=== PATIENT | female | born 1955 | race Caucasian/White ===

== ENCOUNTER → 2017-08-25 | Outpatient (CLI) | payer OTHER ==
[~2017-08-25] VITALS: Ht 167.6 cm; Wt 63.5 kg
[~2017-08-25] MED LIST: FISH OIL 1,001000 M2 PO; FOSAMAX 70 MG T70 MG PO; MULTI VITAMIN1 EACH PO
--- NOTE | ~2017-08-25 | P ---
[facility] [place] [address] PROCEDURE REPORT Name: RENUKA NEGRON Room #: REG [facility]#: [id number] Admission: 08/25/17 Attend Phys: Ramu Stockton MD Discharge: Date of : 55 Report #: [id number] THIS REPORT FOR: //name// CC: Kym Stockton BRIEF HISTORY: The patient is a 61-year-old woman with increase in reflux symptoms. It is noted she does take Fosamax. PREOPERATIVE DIAGNOSES: Reflux disease and use of Fosamax. POSTOPERATIVE DIAGNOSES: 1. Mild diffuse erythematous gastritis. 2. Small hiatus hernia. 3. Question of short segment Patel's. MEDICATIONS: Deep sedation with propofol per anesthesia. SPECIMENS: Gastric biopsy, rule out H. pylori. ESTIMATED BLOOD LOSS: 3 mL. PROCEDURE: EGD with biopsy. FINDINGS: Prior to propofol sedation, procedure of upper endoscopy was discussed with the patient as well as potential risks, benefits, and complications. She indicates she understands and desires to proceed. With the patient in left lateral decubitus position, the Twelvefoldi video endoscope was inserted in the cervical esophagus under direct vision without difficulty. Examination of this organ through its entire length revealed normal esophageal mucosa down the squamocolumnar junction. The squamocolumnar junction was intact; however, did have somewhat irregular course and there were possible too broad tongues of Patel mucosa. These were less than 2 cm in length. Multiple biopsies were obtained. The mucosa was flat. No ulcers, strictures or masses were seen. Intermittently, small hiatus hernia was seen. The scope was advanced into the stomach, was examined on end view as well as retroflexed views. There was erythema in the antrum, but no ulcers or erosions were seen. Upon retroflexion, small hiatus hernia was intermittently seen. No other abnormalities were identified. The pylorus, duodenal bulb, and postbulbar sweep were inspected and noted unremarkable. At that point, the scope was slowly withdrawn and careful circumferential views confirmed the above finding. The patient tolerated the procedure well. CONDITION OF THE PATIENT UPON DISCHARGE: Following procedure, the patient drowsy. She was then prepared for colonoscopy. [address] [address] PROCEDURE REPORT Name: MIGDALIARENUKA K Room #: REG [facility].#: [id number] Admission: 08/25/17 Attend Phys: Ramu Stockton MD Discharge: Date of : 55 Report #: [id number] INSTRUCTIONS TO THE PATIENT AND FAMILY AT THE TIME OF DISCHARGE: We will follow up on biopsies obtained today. If she does have Patel mucosa without dysplasia, she should return in 6 months for repeat EGD. If dysplasia is present, she may need further investigation or treatment. I do not see endoscopic evidence of reflux disease. At this point in time, suggest she use either an H2 keo or PPI as needed for reflux symptoms. We will proceed with colonoscopy at this time. By: [id number] Ramu Stockton MD /nt
--- NOTE | ~2017-08-25 | S ---
[facility] [address] [place] [address] SURGICAL PATH RPT PROCEDURE Name: RENUKA NEGRON Room #: REG [facility]#: [id number] Admission: 08/25/17 Date of : 55 Discharge: Report #: [id number] Path Case #: [id number] PATHOLOGY REPORT DRAFT COLLECTION DATE: 08/25/2017 RECEIVED DATE: 08/25/2017 SPECIMEN(S) RECEIVED: A.Gastric B.Distal esophagus C.Colon polyp at 60 cm D.Cecal polyp E.Ascending colon polyp
--- NOTE | ~2017-08-25 | P ---
[facility] [place] [address] PROCEDURE REPORT Name: RENUKA NEGRON Room #: REG [facility]#: [id number] Admission: 08/25/17 Attend Phys: Ramu Stockton MD Discharge: Date of : 55 Report #: [id number] THIS REPORT FOR: //name// CC: Kym Stockton DATE OF SERVICE: 08/25/2017 BRIEF HISTORY: The patient is a 61-year-old woman for average risk screening colonoscopy. Last colonoscopy was 10 years ago. PREOPERATIVE DIAGNOSIS: Average risk screening colonoscopy. POSTOPERATIVE DIAGNOSIS: Multiple colon polyps. MEDICATIONS: Deep sedation with propofol per anesthesia. SPECIMEN: 1. Polyp at 60 cm. 2. Polyp from cecum. 3. Polyp, ascending colon. ESTIMATED BLOOD LOSS: 3 mL. PROCEDURE: Colonoscopy to cecum and terminal ileum with snare polypectomy and biopsy. FINDINGS: Prior to propofol sedation, procedure of colonoscopy discussed with the patient as well as potential risks and its complications. She indicates she understands and desires to proceed. DESCRIPTION OF PROCEDURE: With the patient in left lateral decubitus position, digital examination was completed which revealed no abnormalities. Subsequently, the Agile[employer] video colonoscope was introduced into the rectum, passed under direct vision to the cecum. Done with minimal difficulty. The cecum was identified by the ileocecal valve and appendiceal orifice. I was able to visualize the distal segment of the terminal ileum, which was inspected and noted to be unremarkable. At that point, the scope was slowly withdrawn and careful circumferential views obtained including retroflexion of the scope in the ascending colon. Upon slow withdrawal of the scope, the prep was noted to be excellent. The mucosa was within normal limits, normal vascular pattern, normal light reflex. As we withdrew the scope, a diminutive polyp was seen in the cecum, removed by biopsy. Scope was further withdrawn and another diminutive polyp seen and removed by biopsy from the hepatic flexure. Scope was further withdrawn and no additional abnormalities were noted until the [facility] [address] [place] [address] PROCEDURE REPORT Name: RENUKA NEGRON Room #: REG [facility]#: [id number] Admission: 08/25/17 Attend Phys: Ramu Stockton MD Discharge: Date of : 55 Report #: [id number] descending colon was reached at about 60 cm. A 4-5 mm sessile polyp was seen and removed by cold snare polypectomy. Scope was further withdrawn and no additional polypoid lesions were seen. No other abnormalities were noted. Scope was withdrawn in the rectum and no abnormalities were seen. Upon retroflexion, no abnormalities were seen. Scope was withdrawn. The patient tolerated procedure well. CONDITION OF THE PATIENT UPON DISCHARGE: Following procedure, the patient drowsy, aroused, conversant and will be discharged home when fully ambulatory. INSTRUCTIONS TO THE PATIENT AND FAMILY AT THE TIME OF DISCHARGE: We will follow up on the path of the polyps. If all 3 are adenomatous, she should return in 3 years; if only 1 or 2 adenomas, then 5 years would be indicated. If none of the polyps are adenomas, 10 years would be recommended. She will return to care of Dr. Abbie Alexis return to see me as needed. Last colonoscopy 10 years ago. Withdrawal time from the cecum was 14 minutes 51 seconds. By: [id number] Ramu Stockton MD /nt
== END | disposition home or self-care (01) ==
LOC: GI 07:49
DX: Z12.11 Encounter for screening for malignant neoplasm of colon (principal); K63.5 Polyp of colon; K21.9 Gastro-esophageal reflux disease without esophagitis; K29.60 Other gastritis without bleeding; K44.9 Diaphragmatic hernia without obstruction or gangrene; M19.90 Unspecified osteoarthritis, unspecified site; Z98.890 Other specified postprocedural states